=== PATIENT | male | born 1960 | race African-American/Black ===

== ENCOUNTER → 2019-03-21 | Day surgery (SDC) | payer OTHER ==
[~2019-03-21] VITALS: Ht 182.9 cm; Wt 139.5 kg
[~2019-03-21] MED LIST: ALLO100T PO; BUPIVACAINE-EPI 0.5%-1:200000 MPF 30 ML VIAL. INJ ONE; CHOL10003 PO; DEXAMETHASONE SOD PHOS 4 MG/ML VIAL ONE; DILT60TA PO; GLYCOPYRROLATE 1 MG/5 ML VIAL. ONE; HEPARIN SODIUM 5,000 UNIT in IV NORMAL SALINE 500ML BAG 500 ML IRR ONE; HYDR-2869 PO; HYDROmorphone 2 MG/ML VIAL IV PRN; IV NORMAL SALINE 1000ML BAG 1,000 ML IV ONE; IV RINGERS,LACTATED 1000ML 1,000 ML IV SCH; LIDOCAINE 1% PF 2 ML VIAL. ID PRN; LIDOCAINE 2% PF 5 ML VIAL. ONE; LORA10TA3 PO; LOSA100T14 PO; MIDAZOLAM HCL/PF 2 MG/2 ML VIAL. ONE; MORPHINE SULFATE 2 MG/ML VIAL. IV PRN; NEOSTIGMINE METHYLSULFATE 5 MG/5 ML SYRINGE. ONE; ONDANSETRON PF 4 MG/2 ML VIAL. IV PRN; ONDANSETRON PF 4 MG/2 ML VIAL. ONE; PROCHLORPERAZINE 10 MG/2 ML VIAL. IV PRN; PROPOFOL 20 ML IV ONE; ROCURONIUM 50 MG/5 ML VIAL. ONE; SEVOFLURANE 31 TO 60 MINUTES. IH ONE; albuteral inhaler INH; ceFAZolin SODIUM 3 GM in IV DEXTROSE 5% 100ML 100 ML IV PRN; fentaNYL PF VIAL 100 MCG/2 ML VIAL IV PRN; fentaNYL PF VIAL 100 MCG/2 ML VIAL ONE; oxyCODONE/APAP 7.5/325 1 TAB TABLET PO ONE
[2019-03-21 07:39] LABS: BASO % 1 % (0-3); EOS # 0.3 x10^3/uL (0.0-0.7); EOS % 5 % (0-3); HEMATOCRIT 34.3 % (39.0-53.0); LYMPH # 1.2 x10^3/uL (1.0-4.8); LYMPH % 21 % (24-48); MEAN CORPUSCULAR HEMOGLOBIN 34 pg (25-35); MEAN CORPUSCULAR HGB CONC 35 g/dL (31-37); MEAN CORPUSCULAR VOLUME 96 fL (79-100); MONO # 0.7 x10^3/uL (0.0-1.1); MONO % 12 % (0-9); NEUT # 3.7 x10^3/uL (1.8-7.7); NEUT % 62 % (31-73); PLATELET COUNT 164 x10^3/uL (140-400); RED BLOOD COUNT 3.56 x10^6/uL (4.30-5.70); RED CELL DISTRIBUTION WIDTH 17.6 % (11.5-14.5); WHITE BLOOD COUNT 5.9 x10^3/uL (4.0-11.0)
[2019-03-21 07:46] LABS: ALBUMIN 3.7 g/dL (3.4-5.0); CALCIUM 8.8 mg/dL (8.5-10.1); CREATININE 7.8 mg/dL (0.7-1.3); GFR 8.6; POTASSIUM 4.7 mmol/L (3.5-5.1)
--- NOTE | 2019-03-21 08:49 | DISCH ---
DISCHARGE INSTRUCTIONS Condition on Discharge Condition on Discharge: Stable Activity After Discharge Activity Instructions for Disc: Activity as tolerated, Avoid exertion Lifting Instructions after Dis: No heavy lifting Driving Instructions after Dis: Do not drive today Diet after Discharge Diet after Discharge: Renal Dialysis Wound Incision Care Wound/Incision Care: Ice to area for comfort, Keep wound/cast CDI Follow-Up Follow up with: Jarrett two weeks LEVON ARZATE MD Mar 21, 2019 08:49
--- NOTE | 2019-03-21 09:05 | PDOC ---
BRIEF OPERATIVE NOTE Date: Mar 21, 2019 Pre-Op Diagnosis ESRD on hemodialysis Post-Op Diagnosis same Procedure Performed l/s placement of PD catheter Surgeon Jarrett Anesthesia Type: General Blood Loss 5cc IV Fluid 400cc Specimens Obtained none Findings no abdominal adhesions Complications none Operative Note Wk # [id number] LEVON ARZATE MD Mar 21, 2019 09:05
--- NOTE | 2019-03-21 09:25 | OP ---
DATE OF SURGERY: 03/21/2019 PREOPERATIVE DIAGNOSIS: End-stage renal disease, on hemodialysis. POSTOPERATIVE DIAGNOSIS: End-stage renal disease, on hemodialysis. PROCEDURE: Laparoscopic placement of peritoneal dialysis catheter. SURGEON: Levon Arzate MD ANESTHESIA: General endotracheal. BLOOD LOSS: 5 mL. INTRAVENOUS FLUIDS: 400 mL. INDICATIONS: The patient is a 58-year-old end-stage renal patient on hemodialysis, requesting peritoneal dialysis catheter placement. OPERATIVE REPORT: The patient brought to the operating suite and given a general endotracheal anesthetic and the abdomen prepped and draped in usual sterile fashion. An epigastric incision was infiltrated with local anesthetic, incised and a 5-mm Visiport used to safely gain access into the abdominal cavity, taking care to avoid injury to the abdominal contents. Pneumoperitoneum established and under direct vision, the insertion site was infiltrated with local anesthetic, incised, and the Veress needle passed into the abdomen. Needle removed. Dilator was passed. Catheter threaded through the sheath and the sheath was removed after seating the Dacron cuff just above the peritoneum. Remaining catheter was tunneled subcutaneously from the access site. The catheter was flushed with a liter of saline, which it readily accepted and drained similar amount. Incisions closed with 3-0 Vicryl in the subcutaneous tissue. 4-0 Monocryl with Steri-Strips for the skin. The catheter was "packed" with heparinized saline. Sterile dressings applied. The patient awakened from his anesthetic and taken to the recovery room in satisfactory condition. LEVON ARZATE MD DR: PATRICIA/oz JOB#: [id number] / [id number]
[2019-03-21 09:50] VITALS: BP 135/71
== END | disposition home or self-care (01) ==
LOC: SURG 06:35
PROVIDERS: ATTEND Surgery
DX: N18.6 End stage renal disease (principal); E66.01 Morbid (severe) obesity due to excess calories; J40 Bronchitis, not specified as acute or chronic; J30.9 Allergic rhinitis, unspecified; I50.9 Heart failure, unspecified; E05.90 Thyrotoxicosis, unspecified without thyrotoxic crisis or storm; G47.30 Sleep apnea, unspecified; Z83.3 Family history of diabetes mellitus; Z82.49 Family history of ischemic heart disease and other diseases of the circulatory system; Z82.5 Family history of asthma and other chronic lower respiratory diseases; Z87.891 Personal history of nicotine dependence; Z88.8 Allergy status to other drugs, medicaments and biological substances; Z99.2 Dependence on renal dialysis; Z79.899 Other long term (current) drug therapy; Z98.890 Other specified postprocedural states; Z68.41 Body mass index [BMI] 40.0-44.9, adult
CPT/HCPCS: 36415; 49324; 80048; 82040; 85025; A7015; J1100; J1644; J2001; J2250; J2405; J2704; J2710; J3010; J3490; J7030; J7040

== ENCOUNTER 2019-06-15 06:33 | Outpatient (CLI) | payer OTHER ==
[~2019-06-15] VITALS: Ht 182.9 cm; Wt 136.5 kg
[~2019-06-15 06:33] MED LIST changes: -BUPIVACAINE-EPI 0.5%-1:200000 MPF 30 ML VIAL. INJ ONE; -DEXAMETHASONE SOD PHOS 4 MG/ML VIAL ONE; -GLYCOPYRROLATE 1 MG/5 ML VIAL. ONE; -HEPARIN SODIUM 5,000 UNIT in IV NORMAL SALINE 500ML BAG 500 ML IRR ONE; -HYDROmorphone 2 MG/ML VIAL IV PRN; -IV NORMAL SALINE 1000ML BAG 1,000 ML IV ONE; -IV RINGERS,LACTATED 1000ML 1,000 ML IV SCH; -LIDOCAINE 1% PF 2 ML VIAL. ID PRN; -LIDOCAINE 2% PF 5 ML VIAL. ONE; -MIDAZOLAM HCL/PF 2 MG/2 ML VIAL. ONE; -MORPHINE SULFATE 2 MG/ML VIAL. IV PRN; -NEOSTIGMINE METHYLSULFATE 5 MG/5 ML SYRINGE. ONE; -ONDANSETRON PF 4 MG/2 ML VIAL. IV PRN; -ONDANSETRON PF 4 MG/2 ML VIAL. ONE; -PROCHLORPERAZINE 10 MG/2 ML VIAL. IV PRN; -PROPOFOL 20 ML IV ONE; -ROCURONIUM 50 MG/5 ML VIAL. ONE; -SEVOFLURANE 31 TO 60 MINUTES. IH ONE; -ceFAZolin SODIUM 3 GM in IV DEXTROSE 5% 100ML 100 ML IV PRN; -fentaNYL PF VIAL 100 MCG/2 ML VIAL IV PRN; -fentaNYL PF VIAL 100 MCG/2 ML VIAL ONE; -oxyCODONE/APAP 7.5/325 1 TAB TABLET PO ONE
[2019-06-15 07:33] VITALS: BP 127/66
[2019-06-15 07:41] LABS: BASO % 1 % (0-3); EOS # 0.2 x10^3/uL (0.0-0.7); EOS % 5 % (0-3); HEMATOCRIT 27.9 % (39.0-53.0); HEMOGLOBIN 9.7 g/dL (13.0-17.5); LYMPH % 23 % (24-48); MEAN CORPUSCULAR HEMOGLOBIN 34 pg (25-35); MEAN CORPUSCULAR HGB CONC 35 g/dL (31-37); MEAN CORPUSCULAR VOLUME 97 fL (79-100); MONO # 0.5 x10^3/uL (0.0-1.1); MONO % 12 % (0-9); NEUT # 2.6 x10^3/uL (1.8-7.7); NEUT % 59 % (31-73); PLATELET COUNT 193 x10^3/uL (140-400); RED BLOOD COUNT 2.88 x10^6/uL (4.30-5.70); RED CELL DISTRIBUTION WIDTH 17.1 % (11.5-14.5); WHITE BLOOD COUNT 4.5 x10^3/uL (4.0-11.0)
[2019-06-15 07:55] LABS: PROTHROMBIN TIME PATIENT 14.7 SEC (11.7-14.0)
[2019-06-15] MEDS ORDERED: IOHEXOL 300 MG/ML 100ML VIAL. ONE (08:33)
[2019-06-15] MEDS ORDERED: IOHEXOL 240 MG/ML 50ML VIAL. ONE (08:42)
[2019-06-15] MEDS ORDERED: CONTRAST GIVEN. MC PRN (09:00)
[2019-06-15] MEDS ORDERED: IOHEXOL 240 MG/ML 50ML VIAL. IJ ONE (09:00)
--- NOTE | 2019-06-15 09:24 | NUR ---
Patient needs to follow up with Dr. Farias in order to have Peritoneal Dialysis Catheter adjusted. Patient stated he has Dr. Farias's information and will follow up with him. Patient ambulated out of CV/OBS area with family without any difficulties.
--- NOTE | 2019-06-22 09:24 | RAD ---
Fluoroscopic evaluation of peritoneal dialysis catheter 06/15/2019 INDICATION: Severe testicular pain with drainage of peritoneal dialysis fluid Discussion: The procedure was explained in its entirety to the patient or the patients designated sales utility representative by a member of the treatment team, including a discussion of the risks, benefits and commonly accepted alternatives to the procedure, as well as the expected consequences of no therapy whatsoever. Discussion of the risks included, but was not limited to, those that are most frequent and those that are rare but possibly severe or life-threatening, as well as the possibility of unforeseen complications. All elements of maximal sterile barrier technique including the use of a cap, mask, sterile gown, sterile gloves, large sterile sheet, appropriate hand hygiene, and 2% chlorhexidine for cutaneous antisepsis (or acceptable alternative antiseptic per current guidelines) were followed for this procedure. Fluoroscopic evaluation demonstrates the tip of the peritoneal dialysis catheter to be coiled in the left lower quadrant of the abdomen. Contrast is seen inferiorly flush into the abdomen. No definitive loculation is identified. Fluid freely exits the catheter by gravity. However, with aspiration, severe scrotal pain was elicited. A guidewire was advanced through the catheter and attempts to manipulate catheter position and straightening catheter which again elicited severe scrotal pain. Catheter was flushed, and the procedure terminated. Total fluoroscopy time: 1.2 minutes Dose area product :11 Gycm2 Impression: Catheter positioned in the left pelvis. No definitive loculation/adhesion. Left Severe scrotal pain at the end of the catheter aspiration.
== END 2019-06-15 09:30 | disposition home or self-care (01) ==
LOC: INTRAD 06:33
PROVIDERS: ATTEND Surgery
DX: T85.691A Other mechanical complication of intraperitoneal dialysis catheter, initial encounter (principal); N50.812 Left testicular pain; Y83.8 Other surgical procedures as the cause of abnormal reaction of the patient, or of later complication, without mention of misadventure at the time of the procedure; Z79.01 Long term (current) use of anticoagulants; Y92.89 Other specified places as the place of occurrence of the external cause
CPT/HCPCS: 36415; 49400; 74190; 85025; 85610; 85730; C1769; Q9966

== ENCOUNTER 2019-06-27 10:30 | Day surgery (SDC) | payer OTHER ==
[~2019-06-27] VITALS: Ht 182.9 cm; Wt 138.5 kg
[~2019-06-27 10:30] MED LIST changes: +HEPARIN SODIUM 5,000 UNIT in IV NORMAL SALINE 500ML BAG 500 ML IRR ONE; +HYDR-2765 PO; +HYDROmorphone 2 MG/ML VIAL IV PRN; +IV RINGERS,LACTATED 1000ML 1,000 ML IV SCH; +LIDOCAINE 1% PF 2 ML VIAL. ID PRN; +MORPHINE SULFATE 2 MG/ML VIAL. IV PRN; +ONDANSETRON PF 4 MG/2 ML VIAL. IV PRN; +PROCHLORPERAZINE 10 MG/2 ML VIAL. IV PRN; +ceFAZolin SODIUM 3 GM in IV DEXTROSE 5% 100ML 100 ML IV PRN; +fentaNYL PF VIAL 100 MCG/2 ML VIAL IV PRN
[2019-06-27 11:28] LABS: BASO # 0.1 x10^3/uL (0.0-0.2); BASO % 1 % (0-3); EOS # 0.2 x10^3/uL (0.0-0.7); EOS % 3 % (0-3); HEMATOCRIT 28.5 % (39.0-53.0); HEMOGLOBIN 9.9 g/dL (13.0-17.5); LYMPH # 0.8 x10^3/uL (1.0-4.8); LYMPH % 13 % (24-48); MEAN CORPUSCULAR HEMOGLOBIN 33 pg (25-35); MEAN CORPUSCULAR HGB CONC 35 g/dL (31-37); MEAN CORPUSCULAR VOLUME 95 fL (79-100); MONO # 0.8 x10^3/uL (0.0-1.1); MONO % 13 % (0-9); NEUT # 4.4 x10^3/uL (1.8-7.7); NEUT % 70 % (31-73); PLATELET COUNT 221 x10^3/uL (140-400); RED BLOOD COUNT 2.99 x10^6/uL (4.30-5.70); RED CELL DISTRIBUTION WIDTH 16.6 % (11.5-14.5); WHITE BLOOD COUNT 6.3 x10^3/uL (4.0-11.0)
[2019-06-27] MEDS ORDERED: IV NORMAL SALINE 1000ML BAG 1,000 ML IV SCH (11:30)
[2019-06-27 11:38] LABS: ALBUMIN 3.4 g/dL (3.4-5.0); CALCIUM 8.4 mg/dL (8.5-10.1); CREATININE 8.7 mg/dL (0.7-1.3); GFR 7.6; POTASSIUM 4.1 mmol/L (3.5-5.1)
[2019-06-27] MEDS: BUPIVACAINE-EPI 0.5%-1:200000 MPF 30 ML VIAL. INJ ONE ×2 (13:08→14:12)
[2019-06-27] MEDS ORDERED: fentaNYL PF VIAL 100 MCG/2 ML VIAL ONE (13:55)
[2019-06-27] MEDS ORDERED: DEXAMETHASONE SOD PHOS 4 MG/ML VIAL ONE (14:25)
[2019-06-27] MEDS ORDERED: PROPOFOL 20 ML IV ONE (14:25)
[2019-06-27] MEDS ORDERED: LIDOCAINE 2% PF 5 ML VIAL. ONE (14:25)
[2019-06-27] MEDS ORDERED: NEOMY/BACITR/POLYMYXIN OINT PACKET. TP ONE (14:25)
[2019-06-27] MEDS ORDERED: ONDANSETRON PF 4 MG/2 ML VIAL. ONE (14:25)
[2019-06-27] MEDS ORDERED: SEVOFLURANE 31 TO 60 MINUTES. IH ONE (14:44)
[2019-06-27 14:50] VITALS: BP 160/60
--- NOTE | 2019-06-27 15:15 | DISCH ---
DISCHARGE INSTRUCTIONS Condition on Discharge Condition on Discharge: Stable Activity After Discharge Activity Instructions for Disc: Activity as tolerated, Avoid exertion Lifting Instructions after Dis: No heavy lifting Driving Instructions after Dis: Do not drive today Diet after Discharge Diet after Discharge: Renal Dialysis Wound Incision Care Wound/Incision Care: Ice to area for comfort Other wound/incision instructi: november shower Tuesday Follow-Up Follow Up With: Jarrett two weeks LEVON ARZATE MD Jun 27, 2019 15:15
--- NOTE | 2019-06-27 15:17 | PDOC ---
BRIEF OPERATIVE NOTE Date: Jun 27, 2019 Pre-Op Diagnosis ESRD, malfunctioning PD catheter Post-Op Diagnosis same Procedure Performed removal PD catheter Surgeon Jarrett Anesthesia Type: General Blood Loss 5cc IV Fluid 250cc Specimens Obtained none Findings catheter with fibrinous contents Complications none LEVON ARZATE MD Jun 27, 2019 15:17
[2019-06-27] MEDS ORDERED: HYDROcodone/APAP 7.5/325MG 1 TAB TABLET PO ONE (15:45)
--- NOTE | 2019-06-29 12:31 | OP ---
DATE OF SURGERY: 06/27/2019 PREOPERATIVE DIAGNOSIS: End-stage renal disease, requesting removal of his malfunctioning PD catheter. POSTOPERATIVE DIAGNOSIS: End-stage renal disease, requesting removal of his malfunctioning PD catheter. PROCEDURE: Removal of PD catheter. SURGEON: Chapin Arzate MD ANESTHESIA: General. BLOOD LOSS: 5. INTRAVENOUS FLUIDS: 250. DESCRIPTION OF PROCEDURE: The patient brought to the operating suite and the abdomen prepped and draped in usual sterile fashion. The insertion site of the catheter was infiltrated with local anesthetic, incised and dissection carried down to the Dacron cuff, which was freed and the pigtail catheter removed intact. Subcutaneous cuff mobilized after infiltrating with local anesthetic and the catheter was removed. Skin incisions closed with yaneth. Sterile dressings applied. The patient was awakened from his anesthetic and taken to the recovery room in satisfactory condition. CHAPIN ARZATE MD DR: PATRICIA/oz JOB#: [id number] / [id number]
== END 2019-06-27 15:45 | disposition home or self-care (01) ==
LOC: SURG 10:30
PROVIDERS: ATTEND Surgery
DX: T85.611A Breakdown (mechanical) of intraperitoneal dialysis catheter, initial encounter (principal); M10.9 Gout, unspecified; E05.90 Thyrotoxicosis, unspecified without thyrotoxic crisis or storm; I12.9 Hypertensive chronic kidney disease with stage 1 through stage 4 chronic kidney disease, or unspecified chronic kidney disease; N18.9 Chronic kidney disease, unspecified; G47.30 Sleep apnea, unspecified; Z87.891 Personal history of nicotine dependence; Y83.8 Other surgical procedures as the cause of abnormal reaction of the patient, or of later complication, without mention of misadventure at the time of the procedure; Y92.89 Other specified places as the place of occurrence of the external cause
CPT/HCPCS: 36415; 49422; 80048; 82040; 85025; A7015; J1100; J2001; J2405; J2704; J3010; J3490; J1644; J7040